=== PATIENT | female | born 1985 | race Caucasian/White ===

== ENCOUNTER 2023-09-13 12:15 | Emergency (ER) | payer OTHER ==
[2023-09-13 13:42] VITALS: BMI 26.1
[2023-09-13] MEDS ORDERED: SODIUM CHLORIDE 1,000 ML IV STA (14:32)
[2023-09-13 14:53] LABS: BASO % 0.3 % (0-2.0); EOS % 0.9 % (0-4.5); HEMATOCRIT 44.3 % (32.4-45.2); HEMOGLOBIN 14.8 GM/dL (10.7-15.3); LYMPH % 25.8 % (8-40); MCH 28.2 pg (25.7-33.7); MCHC 33.5 g/dl (32.0-36.0); MEAN CELL VOLUME 84.2 fl (80-96); MEAN PLT VOLUME 7.8 fl (7.5-11.1); MONO % 6.8 % (3.8-10.2); NEUT % 66.2 % (42.8-82.8); PLATELET COUNT 317 10^3/uL (134-434); RBC 5.26 M/mm3 (3.60-5.2); RDW 13.6 % (11.6-15.6); WHITE BLOOD COUNT 8.9 K/mm3 (4.0-10.0)
[2023-09-13 14:58] VITALS: BP 123/82; PULSE 96; RESP 24; TEMP 98.2
[2023-09-13 15:57] LABS: POTASSIUM 3.9 mmol/L (3.5-5.1)
[2023-09-13 16:00] LABS: BLOOD UREA NITROGEN 8.1 mg/dL (7-18); CALCIUM 9.7 mg/dL (8.5-10.1)
[2023-09-13 16:03] LABS: CREATININE 0.8 mg/dL (0.55-1.3)
[2023-09-13 16:05] LABS: BILIRUBIN,TOTAL 0.4 mg/dL (0.2-1); TOT PROT 7.9 g/dl (6.4-8.2)
== END 2023-09-13 16:20 | disposition home or self-care (01) ==
LOC: JER 12:15
PROC: 3E0337Z Introduction of Electrolytic and Water Balance Substance into Peripheral Vein, Percutaneous Approach (ICD-10-PCS; principal; 2023-09-13)
DX: R00.0 Tachycardia, unspecified (principal); R00.2 Palpitations; R20.2 Paresthesia of skin; G47.9 Sleep disorder, unspecified; R45.0 Nervousness
CPT/HCPCS: 36415; 80053; 84439; 84443; 84703; 85025; 85379; 93005; 93010; 99284-25

== ENCOUNTER 2024-09-28 01:24 | Emergency (ER) | payer SELFPAY ==
[2024-09-28 01:33] VITALS: TEMP 97.8; BMI 24.4
[2024-09-28] MEDS ORDERED: MORPHINE SULFATE 2 MG/ML SYRINGE ONE (01:49)
[2024-09-28] MEDS: morphine CARPU-JECT 2 MG/1 ML DISP.SYRIN IVPUSH ONE (02:01)
[2024-09-28] MEDS: LACTATED RINGERS SOLUTION 1,000 ML/1,000 ML INFUS.BAG IV SCH (02:02)
[2024-09-28 02:13] LABS: BASO % 0.4 % (0-2.0); EOS % 1.4 % (0-4.5); HEMATOCRIT 42.4 % (32.4-45.2); HEMOGLOBIN 13.9 GM/dL (10.7-15.3); MCH 28.3 pg (25.7-33.7); MCHC 32.7 g/dl (32.0-36.0); MEAN CELL VOLUME 86.5 fl (80-96); MONO % 5.3 % (3.8-10.2); NEUT % 62.9 % (42.8-82.8); PLATELET COUNT 307 10^3/uL (134-434); RDW 13.3 % (11.6-15.6); WHITE BLOOD COUNT 12.6 K/mm3 (4.0-10.0)
[2024-09-28 02:27] LABS: POTASSIUM 3.9 mmol/L (3.5-5.1)
[2024-09-28 02:29] LABS: ALBUMIN 3.7 g/dl (3.4-5.0); BLOOD UREA NITROGEN 9.2 mg/dL (7-18); CALCIUM 9.5 mg/dL (8.5-10.1)
[2024-09-28 02:32] LABS: CREATININE 0.8 mg/dL (0.55-1.3)
[2024-09-28 02:34] LABS: BILIRUBIN,TOTAL 0.6 mg/dL (0.2-1); TOT PROT 7.2 g/dl (6.4-8.2)
[2024-09-28 02:39] LABS: EPI CELLS >36 /uL (0-25.1); HYALINE CASTS 14 /uL (0-3.1); PH,URINE 6.5 (5.0-8.0); URINE APPEARANCE TURBID; URINE BACTERIA >9,000 /uL (0-1359); URINE BILIRUBIN NEGATIVE (NEGATIVE); URINE COLOR DK YELLOW; URINE GLUCOSE (UA) NEGATIVE (NEGATIVE); URINE KETONE 1+ (NEGATIVE); URINE LEUK ESTERASE 3+ (NEGATIVE); URINE NITRITE POSITIVE (NEGATIVE); URINE PROTEIN 2+ (NEGATIVE); URINE RBC 3271 /uL (0-23.9); URINE WBC 9288 /uL (0-25.8)
[2024-09-28 02:40] VITALS: BP 138/90; PULSE 88; RESP 12
[2024-09-28] MEDS ORDERED: ACETAMINOPHEN INJECTION 100 ML ONE (02:53)
[2024-09-28] MEDS ORDERED: CEFTRIAXONE 1 GM/50 ML BAG ONE (02:54)
[2024-09-28] MEDS: ACETAMINOPHEN 1000 MG/100 ML BAG IVPB ONE (02:58)
[2024-09-28] MEDS: CEFTRIAXONE 1,000 MG in DEXTROSE 5%-WATER - 50 ML IVPB ONE (04:04)
== END 2024-09-28 04:35 | disposition home or self-care (01) ==
LOC: JER 01:24
PROC: 3E03329 Introduction of Other Anti-infective into Peripheral Vein, Percutaneous Approach (ICD-10-PCS; principal; 2024-09-28)
PROC: 3E033NZ Introduction of Analgesics, Hypnotics, Sedatives into Peripheral Vein, Percutaneous Approach (ICD-10-PCS; 2024-09-28)
PROC: 3E033NZ Introduction of Analgesics, Hypnotics, Sedatives into Peripheral Vein, Percutaneous Approach (ICD-10-PCS; 2024-09-28)
DX: N39.0 Urinary tract infection, site not specified (principal); N12 Tubulo-interstitial nephritis, not specified as acute or chronic; R10.30 Lower abdominal pain, unspecified; R11.10 Vomiting, unspecified
CPT/HCPCS: 36415; 80053; 81003; 84703; 85025; 86850; 86900; 86901; 99284-25; J0131